=== PATIENT | male | born 1960 | race Caucasian/White ===

== ENCOUNTER 2024-06-29 10:10 | Inpatient (IN) | payer MEDICARE, BC, SELFPAY ==
[2024-06-27 13:50] VITALS: BMI 32.4
--- NOTE | 2024-06-27 13:56 | ED.GENMED ---
ED Provider Triage
<Kayley Lopez PA-C - Last Filed: 06/28/24 11:33>
-
Patient seen by provider in Triage?: Seen in Triage
Attestation: A medical screening examination has been initiated by a qualified medical provider. Based on the assessment performed at this time, it has been determined that an emergent medical condition may exist and the patient has been informed
that further medical evaluation and possible additional diagnostic testing may be needed.
HPI: 64yoM here after an syncopal episode 1 hour ago. Walking into bedroom when he suddenly became dizzy. Immediately sat on the bed. He then stood up and lost consciousness. Struck head and has a facial abrasion. Still feels dizzy. Also reports
mild URI symptoms x 1 week with some mild dyspnea.
Remote hx of afib 2/2 Grave's disease, no longer on meds.
GENERAL: Alert , in no apparent distress
EYE: No visual abnormalities.
NECK: Trachea midline
ENT: No visible abnormalities.
LUNGS: No acute respiratory distress
NEUROLOGICAL: Alert and oriented
SKIN: Skin intact. No visible changes.
MUSCULOSKELETAL: Moving extremities normally
PSYCH: Normal and appropriate interaction.
This is a medical evaluation conducted in person to initiate diagnostic evaluation and provide initial therapeutics. Please see further documentation by the treating clinician.
Cardiac labs, COVID/flu swab, EKG, and CXR ordered.
History of Present Illness
<Kayley Lopez PA-C - Last Filed: 06/28/24 11:33>
General
Chief Complaint: Fainting/Passed Out
Time Seen by Provider: 06/27/24 16:58
<Maris Strange PA-C - Last Filed: 06/27/24 23:07>
General
Source: patient
Exam Limitations: none
Nursing documentation reviewed up to this point in time: agreed with
History of Present Illness
History of Present Illness:
pt is a 64 y/o M
h/o IDDM, graves disease, PAF (related to overactive thyroid in 2013, no longer AC)
htn on lisinopril
here after syncope 12 pm today
pt was walking into his bedroom and suddenly felt like he was going to pas out. it was severe lightheadedness, maybe a little sob; he threw himself on the bed and was ok for 10 seconds and tried to get up and then passed out fully onto the ground
he woke up and had abrasion on his left eyebrow
feels some mild headache and sore neck
otherwise no urinary incontinence, no back pain, no chest pain
he was able to get himself up and feels mostly himself; when he stands he feels a little off
says intermittently over the past several years he has had episodes of lightheadedness but never this bad
acutally pot says when he extends his neck and looks upward and then back down he feels 'off balance'
he modifies his activty to avoid doing this and then doesn' thave any issues
he has never had brain imaging for that
but saw his pcp 6+ mo ago who thought maybe it was related to old concussions and gave him RX for PT. he admittedly never went
pt has had a little URI for a few days
congestion, sneezing, minimal cough
no fever/chills
previously he has had 2 seizures related to hypoglycemia
when pt woke up today his BG was normal
Past History
<Kayley Lopez PA-C - Last Filed: 06/28/24 11:33>
Past History
ED Past Medical History: Arrthythmia (afib), IDDM and Hyperthyroidism (Graves)
ED Past Surgical History: None
Social History
Tobacco: Non-smoker
Alcohol: None
Drug: None
Personal:
Living: with family
Employment: Employed
Family History
Family History: Hypertension
Review of Systems
<Maris Strange PA-C - Last Filed: 06/27/24 23:07>
Review of Systems
Allergies reviewed?: Yes
All Other Systems: Not applicable
Phy Exam
<Maris Strange PA-C - Last Filed: 06/27/24 23:07>
Physical Exam
Physical Exam:
GENERAL: Alert , in no apparent distress
head: superficial abrasion above L eyebrown notnender
EYE: pupils equal and reactive
NECK: Supple no midline tendenress, mild paraspinal muscle tenderness;
ENT: o/p clr, mmm.
CARDIAC: irregularly irregular
no edema
no murmur
LUNGS: Clear breath sounds bilaterally, no acute respiratory distress, no wheezes/rales/rhonchi
ABDOMEN: Soft, without focal tenderness, no r/g, no cvat, normal bowel sounds
NEUROLOGICAL: Alert and oriented, no focal neuro deficits, cn intact
SKIN: Warm and dry, skin intact.
MUSCULOSKELETAL: No edema, well perfused. neg adelia's sign
PSYCH: Normal and appropriate interaction.
Course
<Kayley Lopez PA-C - Last Filed: 06/28/24 11:33>
Orders/Labs/Results
Orders:
Orders
06/27/24 13:51
Electrocardiogram (*1) Urgent
Reason for Study: Syncope
EKG- Treatment ONCE
06/27/24 14:01
CR Chest - 2 Views Urgent
Comment:
Reason For Exam: SOB
06/27/24 14:03
Complete Blood Count/With Diff Urgent
Comprehensive Metabolic Panel Urgent
Magnesium Urgent
Phosphorus Urgent
Comment: ADDON
TSH Reflex To Free T4 Urgent
Comment: ADDON
Troponin I Urgent
06/27/24 14:04
COVID-19 Antigen Urgent
Source: Nasal Swab
Influenza A+B Rapid Molecular Urgent
BAUDILIO Source: Nasal Swab
Specimen Description:
06/27/24 Dinner
1800 calorie (15 carb) Diabetic
At Your Request: Full Participation
Does patient need a safe tray?: No
06/27/24 17:23
CT Cervical Spine W/o Iv Contr Urgent
Comment:
Reason For Exam: fall hit head, neck pain
0.9% Sodium Chloride 1000 ml [Nss] 1,000 ml IV BOLUS
06/27/24 17:24
CT Head W/o Iv Contrast Urgent
Comment:
Reason For Exam: syncope, hit head
06/27/24 17:31
Troponin I Urgent
06/27/24 19:03
Admit/Transfer Patient As Directed
Co-Sign Provider:
Level of Care: Observation services
Assign to:: Telemetry
Physician / Group: Kasi Cobb
Diagnosis: syncope
Reason for Telemetry: Syncope
Date to Stop Telemetry: 06/29/24
Time to Stop Telemetry: 11:00
PRN Pain Medication Management As Directed
May give lesser potent ordered pain med per pt: Yes
preference::
Protocol:: Medication orders for pain may be administered in a
manner that supports deferring to patient preference
when the pt is:
- Requesting an ordered lesser potent pain medication.
Least to most potent pain medications are defined
as: acetaminophen < NSAID < tramadol < opioids
(morphine, oxycodone, hydromorphone).
- Requesting a lesser dose of the same medication IF
ORDERED.
- Requesting a less intrusive route of administration
if both routes are prescribed by the provider (PO <
IV).
06/27/24 19:05
Code Status As Directed
Resuscitation Status: Full Code
06/27/24 21:35
Acetaminophen [Tylenol] 650 mg PO Q4HPRN PRN
Dextrose 50%-Water [Dextrose 50% Syringe] 12.5 grams IV [id number] PRN
Glucagon [GlucaGen] 1 mg IM PRN PRN
06/27/24 21:35
Consult Cardiology [CARDIOLOGY CONSULT] Routine
Consulting Provider: Florian Larsen
Was physician already notified: Yes
Activity As Directed
Activity Level: Ambulate
Bedside Glucose Monitoring As Directed
Frequency: AC&HS
Additional Instructions:: Change to q6h if pt on TPN, tube feeding or not eating
Orthostatic Vital Signs As Directed
Orthostatic VS Frequency: BID
Vital Signs As Directed
Frequency: Per unit guidelines
Weight As Directed
Frequency: Once
DX Deep Vein Thrombosis Video Routine
06/27/24 22:00
Buspirone [Buspar] 5 mg PO BID
Melatonin 5 mg PO HS
Tamsulosin [Flomax] 0.4 mg PO HS
insulin degludec 28 unit SC HS
06/27/24 22:13
Troponin I Routine
06/28/24 07:12
Complete Blood Count/No Diff IN AM
Comprehensive Metabolic Panel IN AM
Glycohemoglobin (HgbA1c) IN AM
06/28/24 07:30
Insulin Aspart High Resistance [Novolog Flexpen-High Resistance] See Protocol SC AC
06/28/24 08:00
Aspirin Chewable [Low Strength Aspirin] 81 mg PO DAILY
Lactobac/Bifidobac [Visbiome] 1 cap PO DAILY
Lisinopril [Zestril] 10 mg PO DAILY
Methimazole [Tapazole] 2.5 mg PO DAILY
Rosuvastatin Calcium [Crestor] 5 mg PO MoWeFr@0800
06/28/24 18:00
Enoxaparin Sodium [Lovenox] 40 mg SC QPM
06/29/24 11:00
DC Protocol for Telemetry ONCE
Abnormal Lab Results
06/27/24
14:03
RDW 14.6 H %
(11.5-14.5)
MPV 10.6 H fL
(7.4-10.4)
Absolute Monos (auto) 0.7 H 10^3/uL
(0.1-0.6)
Lymphocytes % 14.9 L %
(20.5-51.1)
Glucose 237 H mg/dl
(70-99)
06/27/24 14:03
06/27/24 14:03
Vital Signs
Initial and Last Documented VS:
Initial Vital Signs
Temp Pulse Resp BP Pulse Ox
98.0 F 72 17 147/89 99
06/27/24 13:57 06/27/24 13:57 06/27/24 13:57 06/27/24 13:57 06/27/24 13:57
Last Documented Vital Signs
Temp Pulse Resp BP Pulse Ox
98.3 F 68 18 148/78 92
06/28/24 08:24 06/28/24 08:34 06/28/24 08:24 06/28/24 08:34 06/28/24 08:24
<Maris Strange PA-C - Last Filed: 06/27/24 23:07>
Orders/Labs/Results
Orders:
Orders
06/27/24 13:51
Electrocardiogram (*1) Urgent
Reason for Study: Syncope
EKG- Treatment ONCE
06/27/24 14:01
CR Chest - 2 Views Urgent
Comment:
Reason For Exam: SOB
06/27/24 14:03
Complete Blood Count/With Diff Urgent
Comprehensive Metabolic Panel Urgent
Magnesium Urgent
Phosphorus Urgent
Comment: ADDON
TSH Reflex To Free T4 Urgent
Comment: ADDON
Troponin I Urgent
06/27/24 14:04
COVID-19 Antigen Urgent
Source: Nasal Swab
Influenza A+B Rapid Molecular Urgent
BAUDILIO Source: Nasal Swab
Specimen Description:
06/27/24 Dinner
1800 calorie (15 carb) Diabetic
At Your Request: Full Participation
Does patient need a safe tray?: No
06/27/24 17:23
CT Cervical Spine W/o Iv Contr Urgent
Comment:
Reason For Exam: fall hit head, neck pain
0.9% Sodium Chloride 1000 ml [Nss] 1,000 ml IV BOLUS
06/27/24 17:24
CT Head W/o Iv Contrast Urgent
Comment:
Reason For Exam: syncope, hit head
06/27/24 17:31
Troponin I Urgent
06/27/24 19:03
Admit/Transfer Patient As Directed
Co-Sign Provider:
Level of Care: Observation services
Assign to:: Telemetry
Physician / Group: Kasi Cobb
Diagnosis: syncope
Reason for Telemetry: Syncope
Date to Stop Telemetry: 06/29/24
Time to Stop Telemetry: 11:00
PRN Pain Medication Management As Directed
May give lesser potent ordered pain med per pt: Yes
preference::
Protocol:: Medication orders for pain may be administered in a
manner that supports deferring to patient preference
when the pt is:
- Requesting an ordered lesser potent pain medication.
Least to most potent pain medications are defined
as: acetaminophen < NSAID < tramadol < opioids
(morphine, oxycodone, hydromorphone).
- Requesting a lesser dose of the same medication IF
ORDERED.
- Requesting a less intrusive route of administration
if both routes are prescribed by the provider (PO <
IV).
06/27/24 19:05
Code Status As Directed
Resuscitation Status: Full Code
06/27/24 21:35
Acetaminophen [Tylenol] 650 mg PO Q4HPRN PRN
Dextrose 50%-Water [Dextrose 50% Syringe] 12.5 grams IV [id number] PRN
Glucagon [GlucaGen] 1 mg IM PRN PRN
06/27/24 21:35
Consult Cardiology [CARDIOLOGY CONSULT] Routine
Consulting Provider: Florian Larsen
Was physician already notified: Yes
Activity As Directed
Activity Level: Ambulate
Bedside Glucose Monitoring As Directed
Frequency: AC&HS
Additional Instructions:: Change to q6h if pt on TPN, tube feeding or not eating
Orthostatic Vital Signs As Directed
Orthostatic VS Frequency: BID
Vital Signs As Directed
Frequency: Per unit guidelines
Weight As Directed
Frequency: Once
DX Deep Vein Thrombosis Video Routine
06/27/24 22:00
Buspirone [Buspar] 5 mg PO BID
Melatonin 5 mg PO HS
Tamsulosin [Flomax] 0.4 mg PO HS
insulin degludec 28 unit SC HS
06/27/24 22:13
Troponin I Routine
06/28/24 07:12
Complete Blood Count/No Diff IN AM
Comprehensive Metabolic Panel IN AM
Glycohemoglobin (HgbA1c) IN AM
06/28/24 07:30
Insulin Aspart High Resistance [Novolog Flexpen-High Resistance] See Protocol SC AC
06/28/24 08:00
Aspirin Chewable [Low Strength Aspirin] 81 mg PO DAILY
Lactobac/Bifidobac [Visbiome] 1 cap PO DAILY
Lisinopril [Zestril] 10 mg PO DAILY
Methimazole [Tapazole] 2.5 mg PO DAILY
Rosuvastatin Calcium [Crestor] 5 mg PO MoWeFr@0800
06/28/24 18:00
Enoxaparin Sodium [Lovenox] 40 mg SC QPM
06/29/24 11:00
DC Protocol for Telemetry ONCE
Abnormal Lab Results
06/27/24
14:03
RDW 14.6 H %
(11.5-14.5)
MPV 10.6 H fL
(7.4-10.4)
Absolute Monos (auto) 0.7 H 10^3/uL
(0.1-0.6)
Lymphocytes % 14.9 L %
(20.5-51.1)
Glucose 237 H mg/dl
(70-99)
06/27/24 14:03
06/27/24 14:03
Vital Signs
Initial and Last Documented VS:
Initial Vital Signs
Temp Pulse Resp BP Pulse Ox
98.0 F 72 17 147/89 99
06/27/24 13:57 06/27/24 13:57 06/27/24 13:57 06/27/24 13:57 06/27/24 13:57
Last Documented Vital Signs
Temp Pulse Resp BP Pulse Ox
98.3 F 68 18 148/78 92
06/28/24 08:24 06/28/24 08:34 06/28/24 08:24 06/28/24 08:34 06/28/24 08:24
<Maris Strange PA-C - Last Filed: 06/27/24 23:07>
MDM/Problems Addressed
Differential Diagnosis Includes:
orthostatic syncope, dysrhythmia, head injury, electrolyte disturbance
MDM/Problems Addressed:
64 y/o M
h/o IDDM
remote PAF no AC;
hyperthyroid on methimezole
here with syncope
concerning story, sudden onset like h was oing to pass out; he threw himself onto his bed and then tried to get up briefly later and passed out
woke up on the ground
now feels mostly ok but while in the waiting area also felt lightheaded
it is not vertigo like dizziness
he has had episoes of lightheadedness exp with neck extension for years - when he looks up and then back down he feels 'off' but never passed out
and never room spinnign
has felt a little SOB the past ew days very miniamlly with walking but he has mild cold
on exam p thas mutluple PVCs on monitor
orthostatics were miminally positive, went up in HR and pt felt a little lightheaded
no obvious nystagmus
neuro intact
no mnurmur
ct head/neck cervical disc diseaes no acute trauma
given the unprovoked syncope, will admit for tele montiroing
<Maris Strange PA-C - Last Filed: 06/27/24 23:07>
*Critical Care Note
Total Time (30-74mins, 75-104mins- exclusive of procedures): Not Applicable
ED Attending Note
<Kayley Lopez PA-C - Last Filed: 06/28/24 11:33>
-
Portions of this chart may have been created with voice recognition software.� Occasional wrong word or��sound alike� substitutions may have occurred due to the inherent limitations of voice recognition software.
Discharge Plan
Departure
Patient Disposition: Admit
Date of Disposition: 06/27/24
Time of Disposition: 18:07
Admit to: Telemetry
Presentation/result/management discussed w/ accepting MD/DO: Hospitalist
Condition: Fair
Covid-19: Not Applicable
Discharge Problem:
Syncope
Interventions
Interventions:
*Risk Screen - Suicide Last Done: 06/27/24 13:59
*General Assessment Last Done: 06/27/24 13:59
*Neglect/Abuse Screening Last Done: 06/27/24 13:59
ED- Fall Risk Assessment Last Done: 06/27/24 17:35
*ED COVID-19 Vaccine History Last Done: 06/27/24 13:59
*Nursing Disposition Last Done: 06/27/24 21:33
ED- Cardiac Assessment Last Done: 06/27/24 17:35
ED- Neurological Assessment Last Done: 06/27/24 17:35
Discharge Date and Time
Discharge Date/Time: 06/27/24 21:34
[2024-06-27 13:57] VITALS: BP 147/89
[2024-06-27 14:16] LABS: % Basophils 0.6 % (0-2); % Eosinophils 1.6 % (0-6); % Immature Granulocytes 0.4 % (0-0.5); % Lymphocytes 14.9 % (20.5-51.1); % Monocytes 8.7 % (1.7-9.3); % Neutrophils 73.8 % (42.2-75.2); Absolute Basophils 0.1 10^3/uL (0-0.2); Absolute Eosinophils 0.1 10^3/uL (0-0.7); Absolute Lymphocytes 1.2 10^3/uL (1.2-3.4); Absolute Monocytes 0.7 10^3/uL (0.1-0.6); Absolute Neutrophils 5.9 10^3/uL (1.4-6.5); Hematocrit 41.8 % (39.0-52.0); Hemoglobin 13.9 g/dL (13.0-18.0); Mean Corp Hgb Conc. 33.3 g/dL (33.0-37.0); Mean Corpuscular Hgb 27.7 pg (27.0-31.0); Mean Corpuscular Volume 83.4 fL (80.0-94.0); Mean Platelet Volume 10.6 fL (7.4-10.4); Nucleated Red Blood Cells % 0 % (-); Platelet Count 253 10^3/uL (130-400); Red Blood Cell Count 5.01 10^6/uL (4.70-6.10); Red Cell Dist. Width 14.6 % (11.5-14.5); White Blood Cell Count 8.1 10^3/uL (4.8-10.8)
[2024-06-27 14:30] LABS: COVID-19 Antigen Negative (Negative)
[2024-06-27 14:35] LABS: ALT (SGPT) 21 U/L (0-50); AST (SGOT) 22 U/L (17-59); Alkaline Phosphatase 125 U/L (38-126); Blood Urea Nitrogen 13 mg/dl (9-20); Calcium 9.4 mg/dl (8.4-10.2); Carbon Dioxide 27 mmol/L (22-30); Chloride 100 mmol/L (98-107); Glucose 237 mg/dl (70-99); Magnesium 1.9 mg/dl (1.6-2.3); Potassium 4.1 mmol/L (3.5-5.1); Sodium 136 mmol/L (135-145); Total Bilirubin 0.6 mg/dl (0.2-1.3); eGFR > 60.00
[2024-06-27 14:46] LABS: Troponin I 0.018 ng/ml
[2024-06-27 16:42] VITALS: BP 136/76
[2024-06-27] MEDS: NSS 1000 IV (17:28)
[2024-06-27 18:10] LABS: Troponin I 0.022 ng/ml
[2024-06-27 18:17] VITALS: BP 145/80
[2024-06-27 18:19] LABS: Phosphorus 2.5 mg/dl (2.5-4.5)
--- NOTE | 2024-06-27 18:27 | HPS.HSE ---
Family Physician
-
Family Physician: Avel Ascencio
Chief Complaint
-
Syncopal episode
History of Present Illness
Patient is a 64-year-old male with past medical history significant for hypertension, hyperlipidemia, DM I, CAD, atrial fibrillation, BPH and hx colon cancer who presented to [facility] ED for evaluation of syncopal episode today. Patient reports
when walking into his bedroom he had sudden onset of dizziness and he quickly laid across bed feeling he would pass out. He laid there for 20-30 seconds when he stood to adjust to lay properly on bed and then stated next thing he remembers is waking
up on floor. Patient reports intermittent dizzy spells over last 2-3 years (generally would happen after looking up he felt) but denies ever passing out. Patient denies any recent sick contacts, fever, chills, CP, shortness of breath, cough, nausea,
vomiting, constipation or diarrhea.
Medical History
Past Medical History
Past Medical History: Reports Other
Additional Past Medical History:
hypertension
hyperlipidemia
DM I
CAD
atrial fibrillation
BPH
graves disease
Past Surgical History: Reports Other
Additional Past Surgical History:
wisdom teeth extraction
Social History
Tobacco: Former Smoker (quit 4 years a go, hx is reported as social smoking over course of 15 years)
Alcohol: Occasional (2-3 beers per week)
Drug: None
Personal:
Living: With Family
Employment: Retired
Family History
Family History: Not pertinent
Allergies / Home Medications
Allergies reflects when Allergies were last updated in [facility].
Home Medications with original date entered in [facility]
Allergy/Medication List:
Allergies
Allergy/AdvReac Type Severity Reaction Status Date / Time
No Known Allergies Allergy Verified 06/27/24 13:58
Home Medications
Lactobac no.2-Bifidobac no.1-S. thermo 112.5 billion cell capsule (Visbiome) 1 cap PO DAILY 06/27/24
Prevagen 1 cap PO DAILY 06/27/24
aspirin 81 mg chewable tablet 81 mg PO DAILY 06/27/24
buspirone 10 mg tablet 5 mg PO BID 06/27/24
rjaqbrdsoia-rppmgmqoh-jcl C-Mn 500 mg-400 mg capsule 1 cap PO DAILY 06/27/24
insulin degludec 200 unit/mL (3 mL) subcutaneous pen 28 unit SC HS 06/27/24
insulin lispro 200 unit/mL (3 mL) subcutaneous pen (Humalog KwikPen U-200 Insulin) 12 - 14 sliding scale dose SC AC 06/27/24
lisinopril 10 mg tablet 10 mg PO DAILY 06/27/24
lutein 20 mg-zeaxanthin 1,000 mcg capsule 1 cap PO DAILY 06/27/24
melatonin 5 mg tablet 5 mg PO HS 06/27/24
methimazole 10 mg tablet 2.5 mg PO DAILY 06/27/24
rosuvastatin 5 mg tablet 5 mg PO MOWEFR 06/27/24
tamsulosin 0.4 mg capsule 0.4 mg PO HS 06/27/24
therapeutic multivitamin 1 tab PO DAILY 06/27/24
Review of Systems
-
History Source: Patient
Constitutional: Reports No Symptoms
EENT: Reports No Symptoms
Respiratory: Reports No Symptoms
Cardiac: Reports No Symptoms
Abdomen/GI: Reports No Symptoms
: Reports No Symptoms
Musculoskeletal: Reports No Symptoms
Skin: Reports No Symptoms
Neurological: Reports Dizzy (with syncope)
Endocrine: Reports No Symptoms
Hematologic/Lymphatic: Reports No Symptoms
Psych: Reports No Symptoms
Physical Exam
Vital Signs
Vital Signs
Temp Pulse Resp BP Pulse Ox
98.1 F 88 20 136/76 95
06/27/24 16:42 06/27/24 17:17 06/27/24 17:17 06/27/24 16:42 06/27/24 17:17
Physical Exam
General: Well Developed, Well Nourished, No Apparent Distress, Comfortable and Conversant
HEENT: NormoCephalic, Moist mucous membranes, Atraumatic, PERRLA, [place] Conjunctivae, Nose Appears Normal and Ears Appear Normal
Respiratory: Clear and Non Labored Respirations
Cardiac: S1/S2 and Regular Rhythm; No Murmur, Rub or Gallop
Breast: Deferred by me
GI: Soft, Non Tender, Non Distended and Normal Bowel Sounds; No Organomegaly
Rectal: Deferred by Provider
Genito-urinary: Deferred by me
Musculoskeletal: No Clubbing, No Cyanosis and No Edema
Skin: Warm and IV/Catheter Site; No Rash
Neuro: Awake, Alert, AO x 3 and Nonfocal/grossly intact
Hematologic/Lymphatic: No Lymphadenopathy
Psych: Calm and Intact Judgment/Insight
Laboratory Results
-
06/27/24 14:03
06/27/24 14:03
Laboratory Results
Total Bilirubin 0.6 mg/dl (0.2-1.3) 06/27/24 14:03
AST 22 U/L (17-59) 06/27/24 14:03
ALT 21 U/L (0-50) 06/27/24 14:03
Alkaline Phosphatase 125 U/L (38-126) 06/27/24 14:03
Troponin I 0.022 ng/ml 06/27/24 17:31
Data Reviewed
-
Diagnostic Radiology: Report Reviewed by me (CXR: 1. Normal heart size without radiographic evidence for acute pulmonary edema. 2. Mild elevation of the right hemidiaphragm. 3. No radiographic evidence for pneumonia or pleural effusion.)
CT Scan: Report Reviewed by me (C-spine: No acute osseous abnormalities. Multilevel cervical degenerative disc disease from C3-4 through C7-T1; Head: There are no focal or acute intracranial abnormalities. There is mild diffuse cortical and
cerebellar atrophy. There is moderate sinusitis)
Medical Tests (Nuc Med, Echo, EKG etc): Report Reviewed by me (EKG: SINUS RHYTHM WITH PREMATURE VENTRICULAR COMPLEXES RIGHT BUNDLE BRANCH BLOCK LEFT ANTERIOR FASCICULAR BLOCK BIFASCICULAR BLOCK )
Lab Data: Labs Reviewed by me
Impression/Plan
-
IMPRESSION/PLAN:
#syncope episode
EKG: SINUS RHYTHM WITH PREMATURE VENTRICULAR COMPLEXES
RIGHT BUNDLE BRANCH BLOCK
LEFT ANTERIOR FASCICULAR BLOCK
BIFASCICULAR BLOCK
C-Spine CT: No acute osseous abnormalities.
Multilevel cervical degenerative disc disease from C3-4 through C7-T1
Head CT: There are no focal or acute intracranial abnormalities.
There is mild diffuse cortical and cerebellar atrophy.
There is moderate sinusitis
Influenza and Covid negative
- Admit to telemetry
- orthostatic VS
- trend Troponin
- Cardiology Consult
- orthostatic VS
#benign hypertension
- continue lisinopril
#hyperlipidemia
- continue rosuvastatin
#DM I
- continue Tresiba
- AccuChecks AC & HS
- SSI
#CAD
- continue rosuvastatin
#atrial fibrillation
reports happened when he found out he had Graves' Disease, no episodes since
#BPH
- continue tamsulosin
#graves disease
- continue methimazole
Code status: Full Code
DVT prophylaxis: Lovenox Sq
--- NOTE | 2024-06-27 19:33 | W.PN.UPDATE ---
Update Note
Progress Note Update
This note serves as an addendum to the H&P by comic artist DUANE
Swati Conti
HPI
64M HX Prx AF, NOT on AC, IDDM, HTN seen at ER
- pe report syncope
- precceded by dizziness while walking into the room , sit on the bed and passed out upon standing
- Struck head and has a facial abrasion.
- reports mild URI symptoms x 1 week with some mild dyspnea.
Remote A Fib related to Grave's disease, no longer on meds.
Vital Signs
Temp Pulse Resp BP Pulse Ox
98.1 F 88 20 136/76 95
06/27/24 16:42 06/27/24 17:17 06/27/24 17:17 06/27/24 16:42 06/27/24 17:17
PE
GENERAL: Alert , in no apparent distress
EYE: No visual abnormalities.
NECK: Trachea midline
ENT: No visible abnormalities.
LUNGS: No acute respiratory distress
NEUROLOGICAL: Alert and oriented
SKIN: Skin intact. No visible changes.
MUSCULOSKELETAL: Moving extremities normally
PSYCH: Normal and appropriate interaction.
Data
Unremarkable CBC and CMP
BG 237
NEG Covid
NEG flu
EKG
SINUS RHYTHM WITH PREMATURE VENTRICULAR COMPLEXES
RIGHT BUNDLE BRANCH BLOCK
LEFT ANTERIOR FASCICULAR BLOCK
BIFASCICULAR BLOCK
ABNORMAL ECG
WHEN COMPARED WITH ECG OF 07-JUN-2020 06:36,
RIGHT BUNDLE BRANCH BLOCK HAS REPLACED NON-SPECIFIC INTRA-VENTRICULAR
CONDUCTION DELAY
CXR
1. Normal heart size without radiographic evidence for acute pulmonary edema.
2. Mild elevation of the right hemidiaphragm.
3. No radiographic evidence for pneumonia or pleural effusion.
HCT
There are no focal or acute intracranial abnormalities.
There is mild diffuse cortical and cerebellar atrophy.
There is moderate sinusitis
CX spine CT
No acute osseous abnormalities.
Multilevel cervical degenerative disc disease from C3-4 through C7-T1
ASSESSMENT & PLAN
Syncope of unclear origin
Vasovagal syncope
Remote HX PAF
HX LINQ implant
- Ortho VSS
- IV NS 1 L bolus at ER
- ECHO in AM
- Tele monitor
- DCA Card consult
Benign hypertension
- continue lisinopril
Hyperlipidemia
- continue rosuvastatin
IDDM
- continue Tresiba
- SSI low
HX CAD
- no CP
- stable
- continue rosuvastatin
BPH
- continue tamsulosin
HX Graves disease
- continue methimazole
DVT prophylaxis: LMWH
Full Code
Obs TLM
[2024-06-27 21:51] LABS: Glucose - Point of Care 251 mg/dl (70-99)
[2024-06-27 22:06] VITALS: BP 136/80; BP 157/74; BP 176/86; PULSE 72; PULSE 83; PULSE 88; BMI 32.0
[2024-06-27] MEDS: MELATONIN 5 MG PO (22:16)
[2024-06-27] MEDS: LANTUS 0.28 UNITS SC (22:16)
[2024-06-27] MEDS: FLOMAX 0.4 MG PO (22:16)
[2024-06-27] MEDS: BUSPAR 5 MG PO (22:16)
[2024-06-27 22:31] VITALS: BMI 32.0
[2024-06-27 22:46] LABS: Troponin I 0.026 ng/ml
[2024-06-27 23:25] VITALS: BP 125/63
[2024-06-28 00:35] LABS: Glucose - Point of Care 220 mg/dl (70-99)
[2024-06-28 03:08] VITALS: BP 121/67
--- NOTE | 2024-06-28 07:58 | W.PN.HOSP.TC ---
Today's Communication/Plan
-
glycemic control
npo after midnight for ppm
Assessment / Plan
Assessment / Plan
Physical Exam
General: no acute distress, appears comfortable
HEENT: NormoCephalic, Moist mucous membranes, Atraumatic, PERRLA, [place] Conjunctivae, small contusion/bruise above left eyebrow
Respiratory: Clear and Non Labored Respirations
Cardiac: S1/S2 and Regular Rhythm; No Murmur, Rub or Gallop
GI: Soft, Non Tender, Non Distended and Normal Bowel Sounds; No Organomegaly
Musculoskeletal: No Clubbing, No Cyanosis and No Edema
Neuro: AOx3
Psych: Calm and Intact Judgment/Insight
64M HTN HLD DM CAD afib Colon Ca Grave's dz here for evaluation episode syncope/fall
#syncope episode
EKG NSR w/ PVCs RBBB Bifascicular Block
C-Spine CT: No acute osseous abnormalities. Multilevel cervical degenerative disc disease from C3-4 through C7-T1
Head CT: There are no focal or acute intracranial abnormalities. mild diffuse cortical and cerebellar atrophy. moderate sinusitis
-Influenza and Covid negative
- cont Telemetry
- initially noted orthostatic hypotension on admission, appears to be resolved at this time, most recent orthostatic vitals neg
- Troponin neg x3
-ECHO appreciated EF 55-60% no significant changed noted from ECHO 2012
- Cardiology Consult appreciated npo after midnight for ppm
#benign hypertension
- continue lisinopril
#hyperlipidemia
- continue rosuvastatin
#DM I
- AccuChecks AC & HS
- SSI
-DM JAVA DEVELOPER WITH SECURITY CLEARANCE eval appreciated Novolog 10U AC Lantus 30U moderate dose sliding scale
#CAD
- continue rosuvastatin
#atrial fibrillation
reports happened when he found out he had Graves' Disease, no episodes since
#BPH
- continue tamsulosin
#graves disease
- continue methimazole
dvt ppx Lovenox
Full Code
I spent a total of 50 minutes with the patient or on the floor. More than 50% of this time involved counseling and coordination of care.
Anticipated Discharge: 24 - 48 hours
Subjective/Interval History
-
Date of Service: June 28, 2024
Seen and examined at bedside in no acute distress sitting up comfortably in bed. Overall reports feeling well. Denies new episodes dizziness lightheadedness palpitations at this time.
Objective Data
-
Labs:
Laboratory Results
06/28/24
07:12
WBC Pending
Hgb Pending
Hct Pending
Plt Count Pending
Sodium Pending
Potassium Pending
Chloride Pending
Carbon Dioxide Pending
BUN Pending
Creatinine Pending
Glucose Pending
Calcium Pending
Total Bilirubin Pending
AST Pending
ALT Pending
Alkaline Phosphatase Pending
Vital Signs:
Vital Signs
Temp Pulse Resp BP Pulse Ox
98.5 F 66 18 121/67 92
06/28/24 03:08 06/28/24 03:08 06/28/24 03:08 06/28/24 03:08 06/28/24 03:08
[2024-06-28 08:01] LABS: Glucose - Point of Care 200 mg/dl (70-99)
[2024-06-28 08:05] LABS: Hematocrit 36.7 % (39.0-52.0); Hemoglobin 12.4 g/dL (13.0-18.0); Mean Corp Hgb Conc. 33.8 g/dL (33.0-37.0); Mean Corpuscular Hgb 28.1 pg (27.0-31.0); Mean Platelet Volume 11.1 fL (7.4-10.4); Platelet Count 196 10^3/uL (130-400); Red Blood Cell Count 4.42 10^6/uL (4.70-6.10); Red Cell Dist. Width 14.6 % (11.5-14.5); White Blood Cell Count 5.6 10^3/uL (4.8-10.8)
[2024-06-28 08:24] VITALS: BP 148/78
[2024-06-28 08:27] LABS: ALT (SGPT) 17 U/L (0-50); AST (SGOT) 18 U/L (17-59); Albumin 3.3 g/dl (3.5-5.0); Alkaline Phosphatase 108 U/L (38-126); Blood Urea Nitrogen 9 mg/dl (9-20); Calcium 8.7 mg/dl (8.4-10.2); Carbon Dioxide 27 mmol/L (22-30); Chloride 103 mmol/L (98-107); Estimated Creatinine Clearance 113 ml/min; Glucose 215 mg/dl (70-99); Potassium 3.9 mmol/L (3.5-5.1); Sodium 136 mmol/L (135-145); Total Bilirubin 0.8 mg/dl (0.2-1.3); Total Protein 5.9 g/dl (6.3-8.2); eGFR > 60.00
[2024-06-28] MEDS: NOVOLOG FLEXPEN-HIGH RESISTANCE SC ×2 (08:34→08:56)
[2024-06-28] MEDS: VISBIOME 1 CAP PO (08:34)
[2024-06-28] MEDS: ZESTRIL 10 MG PO (08:34)
[2024-06-28] MEDS: TAPAZOLE 2.5 MG PO (08:35)
[2024-06-28] MEDS: BUSPAR 5 MG PO ×2 (08:35→21:05)
[2024-06-28] MEDS: LOW STRENGTH ASPIRIN 81 MG PO (08:36)
[2024-06-28] MEDS: CRESTOR 5 MG PO (08:38)
--- NOTE | 2024-06-28 08:57 | PTCARENOTE ---
Accu check 200 this morning. Patient states that he should be taking more than the 4 units of regular insulin for coverage. Patient also states that he should be on Lantus twice daily not once daily as he takes a 24 hour acting insulin at home.
Hospitalist contacted. Patient covered with a one time dose of regular insulin of 8 units and extension educator consult placed.
[2024-06-28] MEDS: NOVOLOG FLEXPEN 8 UNITS SC (09:15)
[2024-06-28 09:36] LABS: Glycohemoglobin (HgbA1c) 8.2 % (4.0-5.6)
--- NOTE | 2024-06-28 09:38 | CON.CAR ---
Addendum entered and electronically signed by Aron Davidson MD 06/28/24 11:38:
I saw and examined the patient.
The Collision Worker's note was reviewed and I agree with the note.
Comment: Briefly, 64-year-old man past medical history of paroxysmal atrial fibrillation, Graves' disease, insulin-dependent diabetes who presents following syncopal episode
Patient tells me that he was walking into his bedroom and felt a prodrome of lightheadedness and dizziness, he laid on the bed and then attempted to stand up and experienced abrupt syncope. Tells me that glucose based on his CGM was within normal
limits. No preceding palpitations or chest discomfort. He wonders if this episode is related to a [employer] muffin that he ate earlier that day.
Initial ECG here showing bifascicular block -RBBB/LAFB� which is new compared to prior tracing in 2019
Has been monitored on telemetry overnight, no significant pauses or tachyarrhythmias seen
Plan to check transthoracic echocardiogram to evaluate for cardiomyopathy or valvular pathology
Discussed with electrophysiology, we will tentatively plan for permanent pacemaker tomorrow
Rest per Elida Morin
Original Note:
Consultation
Consultation Request
Date/Time Consultation Performed: 06/28/24
Requesting Provider: Dr. Cobb
Performing Provider: Elida Morin PA-C for Dr. Davidson
Reason for Consultation: syncope
Medical History
-
Chief Complaint: syncope
History of Present Illness:
Patient is a 64-year-old male with past medical history of insulin-dependent diabetes, paroxysmal atrial fibrillation diagnosed in the setting of Graves' disease, without known recurrence since treatment, with Linq in place, however no longer
functional who presented to [facility] after episode of syncope. He reports yesterday he had eaten half of a muffin from [employer] and shortly thereafter while walking into his bedroom felt dizzy. He reports this came on very strong and very
quickly. He states he 'dove to bed' as he felt as though he was going to pass out. He then states he remembers trying to stand up, however then did pass out as he woke up on the floor. He estimates he was out for about 10 to 15 seconds. He
denies significant confusion following the episode. He reports this is different than when he has had hypoglycemia in the past and he does have a renaldo monitor which alerts him if his sugar is low. He came to ER for evaluation and was admitted.
By EKG he has bifascicular block. On review of telemetry overnight he has frequent PVCs as well as intermittent junctional rhythm at times. Not on AV garcia nasrin as outpatient. Also reports some worsening CARRILLO over the last several months.
Cardiology consulted for evaluation.
PMH:
IDDM
PAF in setting of Graves disease, no known recurrences since treatment
History of linq monitor, no longer functional
HTN
HLD
Anxiety
BPH
Past Medical History
Past Medical History: Other (in HPI)
Social History
Tobacco: Former Smoker
Alcohol: Occasional
Employment: Employed
Allergies / Home Medications
Allergy/AdvReac Type Severity Reaction Status Date / Time
No Known Allergies Allergy Verified 06/27/24 13:58
�Medication �Instructions �Recorded �Confirmed �Type
Lactobac no.2-Bifidobac no.1-S. 1 cap PO DAILY Supplement 06/27/24 06/27/24 History
thermo 112.5 billion cell capsule
(Visbiome)
Prevagen 1 cap PO DAILY Supplement 06/27/24 06/27/24 History
aspirin 81 mg chewable tablet 81 mg PO DAILY Blood Clot 06/27/24 06/27/24 History
Prevention/Tx
buspirone 10 mg tablet 5 mg PO BID Mental Health/Anxiety 06/27/24 06/27/24 History
gssubygbzye-ppfrxmkds-abu C-Mn 500 1 cap PO DAILY Supplement 06/27/24 06/27/24 History
mg-400 mg capsule
insulin degludec 200 unit/mL (3 28 unit SC HS Diabetes 06/27/24 06/27/24 History
mL) subcutaneous pen
insulin lispro 200 unit/mL (3 mL) 12 - 14 sliding scale dose SC AC 06/27/24 06/27/24 History
subcutaneous pen (Humalog KwikPen Diabetes
U-200 Insulin)
lisinopril 10 mg tablet 10 mg PO DAILY Blood Pressure 06/27/24 06/27/24 History
lutein 20 mg-zeaxanthin 1,000 mcg 1 cap PO DAILY Supplement 06/27/24 06/27/24 History
capsule
melatonin 5 mg tablet 5 mg PO HS Sleep 06/27/24 06/27/24 History
methimazole 10 mg tablet 2.5 mg PO DAILY Thyroid 06/27/24 06/27/24 History
rosuvastatin 5 mg tablet 5 mg PO MOWEFR High Cholesterol 06/27/24 06/27/24 History
tamsulosin 0.4 mg capsule 0.4 mg PO HS Urinary Issue 06/27/24 06/27/24 History
therapeutic multivitamin 1 tab PO DAILY Supplement 06/27/24 06/27/24 History
Review of Systems
-
History Source: Patient
All other systems: Negative unless noted
Physical Exam
Vital Signs
Temp Pulse Resp BP Pulse Ox
98.3 F 68 18 148/78 92
06/28/24 08:24 06/28/24 08:34 06/28/24 08:24 06/28/24 08:34 06/28/24 08:24
Lab Results
06/28/24 07:12
06/28/24 07:12
Troponin I 0.026 ng/ml 06/27/24 22:13
Physical Exam
General: No Apparent Distress and Comfortable
HEENT: Normocephalic, Anicteric and Moist Mucous Membranes
Respiratory: Clear and Non Labored Respirations
Cardiac: Regular Rhythm (with ectopy)
GI: Soft, Non Tender, Non Distended and Normal Bowel Sounds
Musculoskeletal: No Clubbing, No Cyanosis and No Edema
Skin: Warm and Dry
Neuro: AO x 3
Impression / Plan
-
Primary Lead Care Manager: Dr. Jovany Reynaga
Assessment:
Presentation with dizziness, syncope
Bifascicular block
Frequent PVCs
Intermittent junctional rhythm vs AIVR
IDDM
PAF in setting of Graves disease, no known recurrences since treatment
History of linq monitor 2015, no longer functional
HTN
HLD
Anxiety
BPH
ECHO 2013: EF 60 to 65%, no regional wall motion abnormalities noted
Ex nuc stress test 2013: Small fixed defect in inferior segment consistent with infarction or soft tissue attenuation, EF 54%, low risk study
Plan:
-Patient presents with episode of syncope preceded by dizziness. On arrival to ER noted to have EKG with bifascicular block. Overnight on review of telemetry patient also with frequent PVCs and occasional couplets/triplets as well as some episodes
of intermittent junctional rhythm vs AIVR.
-head CT negative for acute abnormality
-He has a Linq from 2016 which is nonfunctional unfortunately
-Check echo, last from 2012 with results as above
-Check ortho VS
-TSH within normal limits
-Not on AV garcia blocking agents as outpatient
-Troponins detectable but within normal range. No chest pain. with risk factors of HTN, HLD, DM, as well as new bifascicular block and PVCs. Last stress test from 2012, consider repeating ischemic eval
-Discussed with EP. In setting of syncope and dizziness with bifascicular block and bradycardia, will plan for DC pacemaker in AM as long as echo with normal EF. if EF is down, would require ischemic eval first.
Data Reviewed
-
EKG: Tracing Personally Visualized and interpreted
CT Scan: Report Reviewed by me
Medical Tests (Nuc Med, Echo etc): Report Reviewed by me
Labs: Labs Reviewed by me
Old Records: Reviewed
[2024-06-28 12:32] LABS: Glucose - Point of Care 254 mg/dl (70-99)
--- NOTE | 2024-06-28 12:45 | PN.DE.MGMTRT ---
Insulin Management
- -
06/28/2024 Diabetes Management Consult
Patient admitted 06/27 with syncope, UR symptoms x 1 week. PMH Type 2 diabetes, a-fib, Graves disease. Prior to admission was taking Degludec 28 units @ hs with humalog 12 to 14 units AC based on CHO intake. A1C on admission 7.8%, cr .8, eGFR > 60.
Patient is awake alert and oriented able to discuss diabetes plan of care. States he has had diabetes 25 years and initially took po meds. His primary doctor, Sonu at [facility], manages his diabetes. Patient has a [place] CGM.
He received 28 units lantus @ HS, fasting glucose 200. Will increase hs lantus to 30 units. AC novolog ordered as one time order 8 units with breakfast . Received 8 units with breakfast, pre lunch glucose 254. AC novolog increased to 10 units
will decrease high corrective to moderate corrective.
Will follow
Diabetes History
- -
Type of Diabetes: 2 requiring insulin
Pre-Admission Diabetes Regimen
06/27/24 06/28/24
14:03 07:12
Creatinine 0.8 0.8
Lab Results
Hemoglobin A1c 8.2 % (4.0-5.6) H 06/28/24 07:12
Insulin Pump Settings
IP Diabetes Regimen
06/27/24 06/27/24 06/28/24
14:03 21:49 00:33
Glucose 237 H
POC Glucose 251 H 220 H
06/28/24 06/28/24 06/28/24
07:12 07:59 12:30
Glucose 215 H
POC Glucose 200 H 254 H
Patient Education
[2024-06-28] MEDS: NOVOLOG FLEXPEN 10 UNITS SC ×2 (12:48→17:35)
[2024-06-28] MEDS: NOVOLOG FLEXPEN-HIGH RESISTANCE 7 UNITS SC (12:49)
--- NOTE | 2024-06-28 13:49 | CM ---
Pt seen bedside. Initial assessment completed. Admitted for syncopal episode.
Pt reports that he lives w/ his daughter and son in a 2ST[place]- 5 steps to enter. Pt states his son resides on the second flr and he and his daughter reside on the first flr.
Pt states he is independent w/ ambulating. No DME identified for daily functioning
Pt denies SNF/VN/PT hx
Address, point of contact and insurance verified
PCP: Dr. Ascencio
Pharmacy: [facility]
Pt currently admitted as OBS. OOBS form reviewed, copy given to pt, copy in chart.
CM consulted for advanced directive. Pt agreeable, CM provided AD paperwork
Plan: Home; no needs anticipated.
CM will cont to follow for d/c planning
[2024-06-28 14:46] VITALS: BP 133/76; BP 149/75; BP 163/78; PULSE 81; PULSE 94; PULSE 96
--- NOTE | 2024-06-28 15:01 | W.PN.UPDATE ---
Update Note
Progress Note Update
reviewed echo with patient -EF normal, frequent ventricular ectopy noted, no significant valvular abnormalities. we discussed given syncope, new bifascicular block, as well as intermittent junctional rhythm vs AIVR, plan for PPM implant with linq
explant tomorrow. d/w nursing
[2024-06-28 17:06] LABS: Glucose - Point of Care 116 mg/dl (70-99)
[2024-06-28] MEDS: LOVENOX 40 MG SC (17:36)
[2024-06-28] MEDS: NOVOLOG FLEXPEN-MODERATE RESISTANCE SC (17:37)
[2024-06-28 18:36] VITALS: BMI 32.0
[2024-06-28 19:52] VITALS: BP 135/82
[2024-06-28 20:00] VITALS: BMI 32.0
[2024-06-28] MEDS: MELATONIN 5 MG PO (21:05)
[2024-06-28] MEDS: FLOMAX 0.4 MG PO (21:05)
[2024-06-28 21:20] LABS: Glucose - Point of Care 100 mg/dl (70-99)
[2024-06-28 23:23] VITALS: BP 124/79; BP 136/75; BP 139/72; PULSE 60; PULSE 72; PULSE 75
[2024-06-29] VITALS (14 sets, daily range): BP systolic 114–149; BP diastolic 68–87; BMI 31.6
[2024-06-29 03:11] LABS: Glucose - Point of Care 144 mg/dl (70-99)
[2024-06-29 06:13] LABS: Glucose - Point of Care 232 mg/dl (70-99)
[2024-06-29] MEDS: NOVOLOG FLEXPEN 10 UNITS SC ×2 (06:16→16:16)
--- NOTE | 2024-06-29 06:40 | W.PN.HOSP.TC ---
Today's Communication/Plan
-
post-op pacemaker placement care as per cardio
cont field recorder
glycemic control
pain control
Assessment / Plan
Assessment / Plan
Physical Exam
General: no acute distress, appears comfortable
HEENT: NormoCephalic, Moist mucous membranes, Atraumatic, PERRLA, [place] Conjunctivae, small contusion/bruise above left eyebrow
Respiratory: Clear and Non Labored Respirations
Cardiac: S1/S2 and Regular Rhythm; No Murmur, Rub or Gallop
GI: Soft, Non Tender, Non Distended and Normal Bowel Sounds; No Organomegaly
Musculoskeletal: No Clubbing, No Cyanosis and No Edema
Neuro: AOx3
Psych: Calm and Intact Judgment/Insight
64M HTN HLD DM CAD afib Colon Ca Grave's dz here for evaluation episode syncope/fall
#syncope episode
EKG NSR w/ PVCs RBBB Bifascicular Block
C-Spine CT: No acute osseous abnormalities. Multilevel cervical degenerative disc disease from C3-4 through C7-T1
Head CT: There are no focal or acute intracranial abnormalities. mild diffuse cortical and cerebellar atrophy. moderate sinusitis
-Influenza and Covid negative
- cont Telemetry
- initially noted orthostatic hypotension on admission, appears to be resolved at this time, most recent orthostatic vitals neg
- Troponin neg x3
-ECHO appreciated EF 55-60% no significant changed noted from ECHO 2012
- Cardiology Consult appreciated ppm 06/29/24
#benign hypertension
- continue lisinopril
#hyperlipidemia
- continue rosuvastatin
#DM I
- AccuChecks AC & HS
- SSI
-DM REAL ESTATE AGENT eval appreciated Novolog 10U AC Lantus 30U moderate dose sliding scale
#CAD
- continue rosuvastatin
#atrial fibrillation
reports happened when he found out he had Graves' Disease, no episodes since
reportedly reoccurred briefly following ppm as per patient, since resolved converted back to NSR
#BPH
- continue tamsulosin
#graves disease
- continue methimazole
dvt ppx Lovenox
Full Code
I spent a total of 40 minutes with the patient or on the floor. More than 50% of this time involved counseling and coordination of care.
Anticipated Discharge: Within 24 hours
Subjective/Interval History
-
Date of Service: June 29, 2024
No acute distress, appears relatively well following pacemaker placement. Noted that he was briefly in afib after procedure (since resolved).
Objective Data
-
Labs:
Laboratory Results
06/29/24
06:00
WBC Pending
Hgb Pending
Hct Pending
Plt Count Pending
Sodium Pending
Potassium Pending
Chloride Pending
Carbon Dioxide Pending
BUN Pending
Creatinine Pending
Glucose Pending
Calcium Pending
Vital Signs:
Vital Signs
Temp Pulse Resp BP Pulse Ox
98.3 F 65 18 133/76 95
06/29/24 03:46 06/29/24 03:46 06/29/24 03:46 06/29/24 03:46 06/29/24 03:46
I&O
06/27/24 06/28/24 06/29/24
06:59 06:59 06:59
Intake Total 1220 / 1220
Balance 1220 / 1220
--- NOTE | 2024-06-29 08:09 | PN.DE.MGMTRT ---
Insulin Management
- -
06/29/2024 Diabetes Management Consult Follow up
Patient admitted 06/27 with syncope, UR symptoms x 1 week. PMH Type 2 diabetes, a-fib, Graves disease. Prior to admission was taking Degludec 28 units @ hs with humalog 12 to 14 units AC based on CHO intake. A1C on admission 7.8%, cr .8, eGFR > 60.
Patient is awake alert and oriented able to discuss diabetes plan of care. States he has had diabetes 25 years and initially took po meds. His primary doctor, Sonu at [facility], manages his diabetes. Patient has a [place] CGM.
Patient HS glucose 100, refused HS lantus, fasting glucose this AM 232. Discussed with patient who states he would be too low if he took the lantus last HS. Encouraged him to consider reducing the dose to prevent glucose trending up to 250. He
did not appreciate the suggestion. Will continue 28 units lantus @ HS and 10 units novolog AC with moderate corrective insulin.
Patient is NPO for procedure 06/29.
Will follow
Diabetes History
- -
Type of Diabetes: 2 requiring insulin
Pre-Admission Diabetes Regimen
06/28/24
07:12
Creatinine 0.8
Lab Results
Hemoglobin A1c 8.2 % (4.0-5.6) H 06/28/24 07:12
Insulin Pump Settings
IP Diabetes Regimen
06/28/24 06/28/24 06/28/24
07:12 12:30 17:05
Glucose 215 H
POC Glucose 254 H 116 H
06/28/24 06/29/24 06/29/24
21:18 03:10 06:11
Glucose
POC Glucose 100 H 144 H 232 H
Meal type: Dinner
Meal type: Lunch
Meal type: Breakfast
Amount consumed: 100%
Amount consumed: 100%
Amount consumed: 100%
Patient Education
[2024-06-29 08:22] LABS: Glucose - Point of Care 188 mg/dl (70-99)
[2024-06-29] MEDS: ZESTRIL 10 MG PO (08:41)
[2024-06-29] MEDS: NOVOLOG FLEXPEN-MODERATE RESISTANCE SC ×2 (08:41→12:45)
[2024-06-29] MEDS: BUSPAR 5 MG PO ×2 (08:42→20:54)
[2024-06-29] MEDS: TAPAZOLE 2.5 MG PO (08:42)
[2024-06-29] MEDS: VISBIOME 1 CAP PO (08:42)
[2024-06-29] MEDS: LOW STRENGTH ASPIRIN 81 MG PO (08:42)
[2024-06-29 08:49] LABS: Hematocrit 40.2 % (39.0-52.0); Hemoglobin 13.2 g/dL (13.0-18.0); Mean Corp Hgb Conc. 32.8 g/dL (33.0-37.0); Mean Corpuscular Hgb 27.7 pg (27.0-31.0); Mean Corpuscular Volume 84.5 fL (80.0-94.0); Mean Platelet Volume 11.2 fL (7.4-10.4); Platelet Count 218 10^3/uL (130-400); Red Blood Cell Count 4.76 10^6/uL (4.70-6.10); Red Cell Dist. Width 14.6 % (11.5-14.5); White Blood Cell Count 6.2 10^3/uL (4.8-10.8)
[2024-06-29 10:25] LABS: Blood Urea Nitrogen 13 mg/dl (9-20); Calcium 8.9 mg/dl (8.4-10.2); Carbon Dioxide 28 mmol/L (22-30); Chloride 102 mmol/L (98-107); Estimated Creatinine Clearance 112 ml/min; Glucose 209 mg/dl (70-99); Magnesium 1.9 mg/dl (1.6-2.3); Phosphorus 2.7 mg/dl (2.5-4.5); Sodium 138 mmol/L (135-145); eGFR > 60.00
[2024-06-29 12:25] LABS: Glucose - Point of Care 247 mg/dl (70-99)
--- NOTE | 2024-06-29 12:32 | PTCARENOTE ---
Patient awaiting pacemaker placement. Patient has been NPO since midnight. Patient understands procedure and denies questions at this time. CHG wipes completed times two. Gown changed and new linens changed. Nose swabbed as per protocol. Antibiotic
master control engineer ordered.
[2024-06-29] MEDS: NOVOLOG FLEXPEN SC (12:35)
--- NOTE | 2024-06-29 13:16 | W.PN.UPDATE ---
Update Note
Progress Note Update
Met with patient prior to pacemaker implantation and discussed risk benefits and treatment alternatives for pacemaker implantation. We discussed the mechanism of his syncope which is related to bradycardia and some vasovagal elements and about the
ongoing need for adequate hydration and caffeine and alcohol reduction. I did describe pacemaker implantation in detail including a 1 of thousand risk of VT stroke and a 1% risk of pneumothorax tamponade infection or bleeding. We also
discussed in broad strokes activity restrictions and follow-up. I took time to answer questions and he signed informed consent.
--- NOTE | 2024-06-29 14:31 | ITS.CL.PACE ---
Crm Marketing Analyst - Pacemaker Implant
Pacemaker Implant
Procedure Report:
Date of Procedure: June 29, 2024
Patient : 1960
Procedure: Pacemaker Implantation.
Indication: Syncope
Implants:
Pulse Generator: Medtronic; Model# W1 DR 1; SN: [id number]
RA Lead: Medtronic; Model# 4574; SN: [id number]
RV Lead: Medtronic; Model# 4074; SN: [id number]
Technique: A time out was performed. The procedure site was identified. The patient was anesthetized by the anesthesia service. Preoperative sedation was administered. The patient did have some modest coughing with the LMA at beginning of the
procedure and we stopped administration of anesthesia with significant cough prior to subclavian access and for the duration of the procedure leaving the patient awake and protecting his airway. The patient was prepped and draped in the usual
fashion. Local anesthetic was applied to the left prepectoral subcutaneous tissue. A 3 inch incision was made 2.5 inches below the left clavicle. A subcutaneous pocket was created with blunt and sharp dissection and hemostasis controlled with Bovie
cautery. The left axillary vein was accessed within the pocket without difficulty. Hemostasis was excellent. The leads were introduced with 7 Fr hemostatic peel away introducer sheaths. The ventricular lead was placed at the right ventricular apex.
The atrial lead was placed
in the right atrial appendage. 10 volt pacing did not capture the diaphragm. The leads were secured to the pectoralis muscle and fascia. The leads were appropriately attached to the device. The pocket was irrigated with antibiotic solution. The
device and leads were placed in the pocket. The incision was closed in three layers with absorbable suture. The estimated blood loss was minimal. There were no complications.��
Lead Analysis:
RA lead: P: 2.8 mV; Threshold: 0.3 V @ 0.5��ms; Impedance: 532 ohms.
RV lead: R: 6.7 mV; Threshold: 0.8 V @ 0.5��ms; Impedance: 1045 ohms.
Final Programming: AAIR�DDDR 60-130 bpm
�
Conclusion: Uncomplicated Medtronic pacemaker implant.
Recommendation: Routine post pacemaker care.
[2024-06-29] MEDS: ZOFRAN 4 MG IV (15:16)
--- NOTE | 2024-06-29 15:30 | PTCARENOTE ---
Rec'd pt from receiver/laborer awake and alert. Pt vomited yellow bile upon admission. Pt with left arm immobilizer in place. NSR on monitor. EKG done. Zofran given IV. See worklist for VS/I and O and assessments.
[2024-06-29 16:16] LABS: Glucose - Point of Care 294 mg/dl (70-99)
[2024-06-29] MEDS: NOVOLOG FLEXPEN-MODERATE RESISTANCE 5 UNITS SC (16:16)
--- NOTE | 2024-06-29 17:24 | PTCARENOTE ---
Pt sent for CXR in radiology department.
[2024-06-29] MEDS: LOVENOX 40 MG SC (17:31)
[2024-06-29 20:01] LABS: Hepatitis C Antibody Negative (Negative)
[2024-06-29] MEDS: ANCEF 5 IV (20:54)
[2024-06-29 21:36] LABS: Glucose - Point of Care 349 mg/dl (70-99)
[2024-06-29] MEDS: NOVOLOG FLEXPEN 5 UNITS SC (22:13)
[2024-06-29] MEDS: MELATONIN 5 MG PO (22:13)
[2024-06-29] MEDS: LANTUS 0.28 UNITS SC (22:13)
[2024-06-29] MEDS: FLOMAX 0.4 MG PO (22:13)
[2024-06-29] MEDS: TUMS CHEWABLE TABLET 400 MG PO (22:16)
--- NOTE | 2024-06-30 02:57 | PTCARENOTE ---
Rec'd pt at change of shift. Pt AAO*3, VSS, and in SR on TELE monitor. Pt denies any pain or discomfort but reports indigestion. OYSTER UNLOADER notified and awaiting order for anti-acid. PT with NOAM chest wall dressing CDI. Pt knowledgeable of RUE
restriction and R arm immobilizer in place. Pt resting with call costa in reach. Plan of care ongoing.
[2024-06-30 03:41] VITALS: BP 132/79
[2024-06-30] MEDS: ANCEF 5 IV (03:47)
[2024-06-30 03:52] LABS: Glucose - Point of Care 204 mg/dl (70-99)
[2024-06-30 03:57] VITALS: BMI 31.4
[2024-06-30 04:33] LABS: Hemoglobin 14.2 g/dL (13.0-18.0); Mean Corpuscular Hgb 27.8 pg (27.0-31.0); Mean Corpuscular Volume 84.1 fL (80.0-94.0); Mean Platelet Volume 10.6 fL (7.4-10.4); Platelet Count 235 10^3/uL (130-400); Red Blood Cell Count 5.11 10^6/uL (4.70-6.10); Red Cell Dist. Width 14.6 % (11.5-14.5); White Blood Cell Count 9.5 10^3/uL (4.8-10.8)
[2024-06-30 04:58] LABS: Blood Urea Nitrogen 11 mg/dl (9-20); Carbon Dioxide 21 mmol/L (22-30); Chloride 103 mmol/L (98-107); Estimated Creatinine Clearance > 125 ml/min; Glucose 212 mg/dl (70-99); Magnesium 1.9 mg/dl (1.6-2.3); Phosphorus 2.9 mg/dl (2.5-4.5); Potassium 4.3 mmol/L (3.5-5.1); Sodium 137 mmol/L (135-145); eGFR > 60.00
--- NOTE | 2024-06-30 06:52 | W.PN.HOSP.TC ---
Today's Communication/Plan
-
discharge
Assessment / Plan
Assessment / Plan
Physical Exam
General: no acute distress, appears comfortable
HEENT: NormoCephalic, Moist mucous membranes, Atraumatic, PERRLA, [place] Conjunctivae, small contusion/bruise above left eyebrow
Respiratory: Clear and Non Labored Respirations
Cardiac: S1/S2 and Regular Rhythm; No Murmur, Rub or Gallop
GI: Soft, Non Tender, Non Distended and Normal Bowel Sounds; No Organomegaly
Musculoskeletal: No Clubbing, No Cyanosis and No Edema
Neuro: AOx3
Psych: Calm and Intact Judgment/Insight
64M HTN HLD DM CAD afib Colon Ca Grave's dz here for evaluation episode syncope/fall
#syncope episode
EKG NSR w/ PVCs RBBB Bifascicular Block
C-Spine CT: No acute osseous abnormalities. Multilevel cervical degenerative disc disease from C3-4 through C7-T1
Head CT: There are no focal or acute intracranial abnormalities. mild diffuse cortical and cerebellar atrophy. moderate sinusitis
-Influenza and Covid negative
- cont Telemetry
- initially noted orthostatic hypotension on admission, appears to be resolved at this time, most recent orthostatic vitals neg
- Troponin neg x3
-ECHO appreciated EF 55-60% no significant changed noted from ECHO 2012
- Cardiology Consult appreciated ppm 06/29/24, stable for discharge
#benign hypertension
- continue lisinopril
#hyperlipidemia
- continue rosuvastatin
#DM I
- AccuChecks AC & HS
- SSI
-DM CARDING UTILITY TENDER eval appreciated Novolog 10U AC Lantus 28U HS moderate dose sliding scale
#CAD
- continue rosuvastatin
#paroxysmal atrial fibrillation
reports happened when he found out he had Graves' Disease, no episodes since
reportedly reoccurred briefly following ppm as per patient, since resolved converted back to NSR
Metoprolol added as per cardio for better rate control
#BPH
- continue tamsulosin
#graves disease
- continue methimazole
dvt ppx Lovenox
Full Code
Medically stable for discharge home with outpatient follow up recommendations.
Total Time Preparing Discharge ____40___ minutes including examination of the patient, summary of the hospital stay, instructions for continuing care to all relevant caregivers; and preparation of discharge records, prescriptions, and referral
forms if necessary.
Anticipated Discharge: Today
Subjective/Interval History
-
Date of Service: June 30, 2024
Seen and examined at bedside in no acute distress sitting up comfortably in chair. Reports overall improvement in symptoms. Feeling well. Ambulating without issues. Eager to go home.
Objective Data
-
Labs:
Laboratory Results
06/30/24
04:03
WBC 9.5
Hgb 14.2
Hct 43.0
Plt Count 235
Sodium 137
Potassium 4.3
Chloride 103
Carbon Dioxide 21 L
BUN 11
Creatinine 0.7
Glucose 212 H
Calcium 9.0
Vital Signs:
Vital Signs
Temp Pulse Resp BP Pulse Ox
98.5 F 91 16 132/79 93
06/30/24 03:41 06/30/24 03:41 06/30/24 03:41 06/30/24 03:41 06/30/24 03:41
I&O
06/28/24 06/29/24 06/30/24
06:59 06:59 06:59
Intake Total 1220 / 1220 480 / 480
Output Total 700 / 700
Balance 1220 / 1220 -220 / -220
--- NOTE | 2024-06-30 07:45 | PN.DE.MGMTRT ---
Insulin Management
- -
06/30/2024: Diabetes Management Follow up:
Patient admitted 06/27 with syncope, UR symptoms x 1 week. PMH Type 2 diabetes, a-fib, Graves disease. Prior to admission was taking Degludec 28 units @ hs with Humalog 12 to 14 units AC based on CHO intake. States he has had diabetes 25 years and
initially took po meds. His primary doctor, Sonu at [facility], manages his diabetes. Patient has a [place] CGM. A1C on admission 7.8%, cr 0.8, eGFR > 60.
Patient is awake alert, oriented, sitting up in chair, able to discuss diabetes plan of care.
s/p PPM placement. HS glucose trended up to 349, received Lantus 28 units @ HS, FBG 212(V) this AM.
pt states his blood sugars have been running higher than normal which he attributes to the stress level of being in the hospital. States he is looking forward to d/c home today.
Discussed with patient about post d/c glucose management, encouraged him to increase AC dose if premeal glucose consistently > 200 and he verbalized understaging.
Diabetes Meds at d/c: Resume Degludec 28 units Lantus @ HS and 12-14 units HumaLog AC
Diabetes History
- -
Type of Diabetes: 2 requiring insulin
Pre-Admission Diabetes Regimen
06/29/24 06/30/24
07:20 04:03
Creatinine 0.8 0.7
Lab Results
Hemoglobin A1c 8.2 % (4.0-5.6) H 06/28/24 07:12
Insulin Pump Settings
IP Diabetes Regimen
06/29/24 06/29/24 06/29/24
07:20 08:21 12:23
Glucose 209 H
POC Glucose 188 H 247 H
06/29/24 06/29/24 06/30/24
16:14 21:35 03:51
Glucose
POC Glucose 294 H 349 H 204 H
06/30/24
04:03
Glucose 212 H
POC Glucose
Meal type: Breakfast
Patient Education
[2024-06-30 07:51] VITALS: BP 165/80
[2024-06-30 08:04] LABS: Glucose - Point of Care 228 mg/dl (70-99)
[2024-06-30] MEDS: NOVOLOG FLEXPEN 10 UNITS SC (08:51)
[2024-06-30] MEDS: NOVOLOG FLEXPEN-MODERATE RESISTANCE 3 UNITS SC (08:52)
[2024-06-30] MEDS: TAPAZOLE 2.5 MG PO (08:53)
[2024-06-30] MEDS: VISBIOME 1 CAP PO (08:53)
[2024-06-30] MEDS: TYLENOL 650 MG PO ×2 (08:53→15:22)
[2024-06-30] MEDS: LOW STRENGTH ASPIRIN 81 MG PO (08:54)
[2024-06-30] MEDS: ZESTRIL 10 MG PO (08:54)
[2024-06-30] MEDS: BUSPAR 5 MG PO (08:54)
[2024-06-30] MEDS: CRESTOR 5 MG PO (08:58)
--- NOTE | 2024-06-30 11:05 | W.PN.CARDCBS ---
Addendum entered and electronically signed by Aron Davidson MD 06/30/24 12:54:
I saw and examined the patient.
The Shop Girl's note was reviewed and I agree with the note.
Comment: Briefly, 54-year-old man presenting following a syncopal episode found to have bifascicular block on initial ECG and episodes of junctional rhythm on telemetry
Underwent permanent pacemaker implant yesterday 06/29/2024
No further episodes of presyncope or syncope
Resting comfortably out of bed to chair this morning
Pacemaker site appears clean dry and intact
Telemetry reviewed, continues to have for which metoprolol was started
Stable for discharge from my perspective with plan for incision check in our office next week
Rest per Elida Morin
Original Note:
Today's Communication / Plan
-
s/p PPM
add toprol 25mg daily
ambulate
OP follow up arranged
likely for DC later today
Impression / Plan
-
Primary Copra Sampler: Dr. Jovany Reynaga
Assessment:
Presentation with dizziness, syncope
Bifascicular block
Frequent PVCs
Intermittent junctional rhythm vs AIVR
s/p Medtronic PPM placement 06/29/24
IDDM
PAF in setting of Graves disease, no known recurrences since treatment
History of linq monitor 2015, no longer functional
HTN
HLD
Anxiety
BPH
ECHO 2013: EF 60 to 65%, no regional wall motion abnormalities noted
Ex nuc stress test 2013: Small fixed defect in inferior segment consistent with infarction or soft tissue attenuation, EF 54%, low risk study
ECHO 06/29/24: EF 55 to 60%, mild concentric LVH, frequent ventricular ectopy, no significant valvular abnormalities, no pericardial effusion, dilated aortic root
Plan:
-s/p Medtronic PPM placement 06/29/24
-of note, he did have significant coughing with anesthesia at time of implant so anesthesia was stopped and patient was awake for remainder of case with airway protection. he had significant reflex initially post procedure however this has
significantly improved and he has tolerated breakfast.
-Left chest site with dressing clean dry and intact
-CXR without PTX
-Remains in sinus rhythm with bifascicular block overnight with some tachycardia and continued frequent PVCs, occasional couplets on review of telemetry. Will add Toprol 25 mg daily.
-Echo with results as above
-Troponins detectable but within normal range. No chest pain. with risk factors of HTN, HLD, DM, as well as new bifascicular block and PVCs. Last stress test from 2012, consider repeating ischemic eval as OP
-ambulate
-wound check arranged
-reviewed activity restrictions with patient
-plan for DC to home later today
-d/w nursing
Progress Note - Copra Sampler
Subjective
Date of Service: June 30, 2024
Reports feeling improved today.
Objective
Labs:
06/30/24 04:03
06/30/24 04:03
Labs
Hgb 14.2 g/dL (13.0-18.0) 06/30/24 04:03
Hct 43.0 % (39.0-52.0) 06/30/24 04:03
Plt Count 235 10^3/uL (130-400) 06/30/24 04:03
Sodium 137 mmol/L (135-145) 06/30/24 04:03
Potassium 4.3 mmol/L (3.5-5.1) 06/30/24 04:03
BUN 11 mg/dl (9-20) 06/30/24 04:03
Creatinine 0.7 mg/dL (0.7-1.3) 06/30/24 04:03
Glucose 212 mg/dl (70-99) H 06/30/24 04:03
Troponins
06/27/24 06/27/24 06/27/24
14:03 17:31 22:13
Troponin I 0.018 0.022 0.026
Vital Signs and I&O:
Vital Signs
Temp Pulse Resp BP Pulse Ox
98.6 F 108 18 165/80 92
06/30/24 07:00 06/30/24 09:00 06/30/24 07:00 06/30/24 07:51 06/30/24 07:00
Vital Signs
Temp Pulse Resp BP Pulse Ox
98.6 F 108 18 165/80 92
06/30/24 07:00 06/30/24 09:00 06/30/24 07:00 06/30/24 07:51 06/30/24 07:00
Intake & Output
06/28/24 06/29/24 06/30/24 07/01/24
07:59 07:59 07:59 07:59
Intake Total 1220 / 1220 480 / 480
Output Total 700 / 700
Balance 1220 / 1220 -220 / -220
Physical Exam
Physical Exam
GEN: No distress, awake, alert, oriented x3. sitting in chair
HEENT: supple, anicteric, mmm, eomi
LUNGS: CTA B/L, no wheezes
CV: Reg with ectopy, S1/S2, no murmur
ABD: soft, BS+, NT/ND
EXT: No cyanosis, clubbing, edema
NEURO: Gross non-focal
SKIN: Warm, pink, dry. No rash. L chest site with dressing c/d/i
[2024-06-30 11:23] VITALS: BP 135/72
[2024-06-30 11:45] LABS: Glucose - Point of Care 275 mg/dl (70-99)
[2024-06-30] MEDS: TOPROL XL 25 MG PO (13:22)
[2024-06-30] MEDS: MAGNESIUM OXIDE 500 MG PO (13:22)
[2024-06-30] MEDS: NOVOLOG FLEXPEN-MODERATE RESISTANCE 5 UNITS SC (13:25)
[2024-06-30] MEDS: NOVOLOG FLEXPEN 12 UNITS SC (13:26)
--- NOTE | 2024-06-30 14:03 | W.DCSUMMARY ---
Discharge Summary
Discharge Data
Date of Admission: 06/29/24
Date of Discharge: 06/30/24
-
Pending Results: No
Discharge Plan
-
Patient Disposition: Home (Routine Discharge)
Discharge Diagnosis/Procedures: Pacemaker implant and loop explant
Syncope
Bifascicular Block
Multilevel cervical degenerative disc disease
Hypertension
Hyperlipidemia
Diabetes
Coronary Artery Disease
paroxysmal atrial fibrillation
BPH
Graves disease
Condition: Good
Diet: Low Cholesterol and Diabetic, Carb Controlled
Activity: As tolerated
Driving Restrictions: No driving for 1 week
Bathing Restrictions: OK to Shower
Activity Restrictions/Additional Instructions:
Follow up with primary care provider in 1 week of discharge and keep your appointment with cardiology.
Metoprolol started for better heart rate control as per Cardiology recommendations.
Please take medications as prescribed/recommended and follow up with primary care provider and/or other healthcare provider involved in your care for refills and/or further adjustment to your medication regimen as necessary.
Stand Alone Forms: DC Inst - Implanted Device
Referrals:
[facility] [place] [Provider Group] - 07/07/24 9:00 am (Incision check appointment)
Avel Ascencio MD [Family Provider] - in one week
Prescriptions:
New
metoprolol succinate 25 mg Tablet Extended Release 24 Hr
25 mg PO DAILY Qty: 30 0RF
Continued
therapeutic multivitamin Tablet
1 tab PO DAILY
buspirone 10 mg Tablet
5 mg PO BID
lisinopril 10 mg Tablet
10 mg PO DAILY
aspirin 81 mg Tablet,Chewable
81 mg PO DAILY
ligelnovmez-driycsxvn-jmj C-Mn 500-400 mg Capsule
1 cap PO DAILY
rosuvastatin 5 mg Tablet
5 mg PO MOWEFR
Visbiome 112.5 billion cell Capsule
1 cap PO DAILY
melatonin 5 mg Tablet
5 mg PO HS
insulin degludec 200 unit/mL (3 mL) Insulin Pen
28 unit SC HS
Humalog KwikPen Insulin 200 unit/mL (3 mL) Insulin Pen
12 - 14 sliding scale dose SC AC
lutein-zeaxanthin 20 mg- 1,000 mcg Capsule
1 cap PO DAILY
Prevagen
1 cap PO DAILY
tamsulosin 0.4 MG capsule
0.4 mg PO HS
methimazole 10 MG tablet
2.5 mg PO DAILY
Discharge Orders:
Discharge Patient (As Directed); Ordered 06/30/24
Ordered By: Vanna Haines
Care Plan Goals
Care Plan Goals:
Problem: Readiness for enhanced knowledge related to diagnosis and treatment plan
Goal: Understand your diagnosis and treatment plan needs, including medications if applicable.
Instructions: Know your diagnosis, underlying causes and treatment plan options, including medications if applicable. Consult with your health care team to learn about your diagnosis and treatment plan, including medications if applicable.
Discharge Date and Time
Print Language: SWEDISH
[2024-06-30 14:32] VITALS: BP 135/61
--- NOTE | 2024-06-30 14:41 | CM ---
CM following for DC planning needs.
Met w/ patient at bedside. He feels well and is hopeful for DC to home today.
He offers no concerns or needs at this time.
Plan is for home, no needs.
--- NOTE | 2024-06-30 16:10 | PTCARENOTE ---
Pt's IV line & telemetry pack removed. D/C instructions discussed w/pt & pt taken out via wheelchair. Pt's nephew drove him home.
== END 2024-06-30 15:45 | disposition home or self-care (01) | DRG 243 ==
LOC: IVU 10:10
PROVIDERS: Internal Medicine Cardiovascular Disease; Nurse Practitioner Family; Physician Assistant; ADMITTING PHYSICIAN Internal Medicine; ATTENDING PHYSICIAN Internal Medicine; EMERGENCY PHYSICIAN Emergency Medicine; FAMILY PHYSICIAN Family Medicine; OTHER PHYSICIAN Internal Medicine Cardiovascular Disease
PROC: 02HK3JZ Insertion of Pacemaker Lead into Right Ventricle, Percutaneous Approach (ICD-10-PCS; 2024-06-29)
PROC: 02H63JZ Insertion of Pacemaker Lead into Right Atrium, Percutaneous Approach (ICD-10-PCS; 2024-06-29)
PROC: 0JH606Z Insertion of Pacemaker, Dual Chamber into Chest Subcutaneous Tissue and Fascia, Open Approach (ICD-10-PCS; 2024-06-29)
DX: R55 Syncope and collapse (principal); I45.2 Bifascicular block; E78.00 Pure hypercholesterolemia, unspecified; I10 Essential (primary) hypertension; E10.9 Type 1 diabetes mellitus without complications; I25.10 Atherosclerotic heart disease of native coronary artery without angina pectoris; I48.0 Paroxysmal atrial fibrillation; N40.0 Benign prostatic hyperplasia without lower urinary tract symptoms; E05.00 Thyrotoxicosis with diffuse goiter without thyrotoxic crisis or storm; S00.81XA Abrasion of other part of head, initial encounter; W18.39XA Other fall on same level, initial encounter; F41.9 Anxiety disorder, unspecified; I49.3 Ventricular premature depolarization; M50.30 Other cervical disc degeneration, unspecified cervical region; Z11.52 Encounter for screening for COVID-19; Z79.4 Long term (current) use of insulin; Z79.82 Long term (current) use of aspirin; Z79.899 Other long term (current) drug therapy; Z85.038 Personal history of other malignant neoplasm of large intestine; Z87.891 Personal history of nicotine dependence
CPT/HCPCS: 33208; 33286; 70450; 71045; 71046; 72125; 80048; 80053; 82962; 83036; 83735; 84100; 84443; 84484; 85025; 85027; 86803; 87502; 87811; 93005; 93306; 96360; 99285; C1785; C1892; C1898; Q9967

== ENCOUNTER 2024-09-27 06:28 | Day surgery (SDC) | payer MEDICARE, BC, SELFPAY ==
[2024-09-27 07:19] LABS: Glucose - Point of Care 161 mg/dl (70-99)
== END 2024-09-27 09:07 | disposition home or self-care (01) ==
LOC: GI 06:28
PROVIDERS: ATTENDING PHYSICIAN Internal Medicine
DX: Z12.11 Encounter for screening for malignant neoplasm of colon (principal); K55.20 Angiodysplasia of colon without hemorrhage; K64.8 Other hemorrhoids; K57.30 Diverticulosis of large intestine without perforation or abscess without bleeding; K63.89 Other specified diseases of intestine; K63.5 Polyp of colon; K52.89 Other specified noninfective gastroenteritis and colitis; Z86.0100 Personal history of colon polyps, unspecified
CPT/HCPCS: 45385; 45380; 45381; 45382; 88305; 82962